=== PATIENT | male | born 1970 | race Asian ===

== ENCOUNTER 2024-09-10 06:11 | Day surgery (SDC) | payer OTHER ==
[2024-09-09 13:11] VITALS: BMI 31.1
[2024-09-10 11:59] VITALS: TEMP 98.2
[2024-09-10 12:11] VITALS: RESP 18
[2024-09-10 12:29] VITALS: PULSE 80
[2024-09-10 12:30] VITALS: BP 118/80
== END 2024-09-10 12:30 | disposition home or self-care (01) ==
LOC: JASU-ENDO 06:11
PROVIDERS: ATTEND Internal Medicine Gastroenterology
PROC: 0DBL8ZX Excision of Transverse Colon, Via Natural or Artificial Opening Endoscopic, Diagnostic (ICD-10-PCS; 2024-09-10)
PROC: 0DBN8ZX Excision of Sigmoid Colon, Via Natural or Artificial Opening Endoscopic, Diagnostic (ICD-10-PCS; principal; 2024-09-10 11:00)
DX: Z12.11 Encounter for screening for malignant neoplasm of colon (principal); D12.3 Benign neoplasm of transverse colon; D12.5 Benign neoplasm of sigmoid colon; K64.8 Other hemorrhoids; Z80.0 Family history of malignant neoplasm of digestive organs
CPT/HCPCS: 82962; 88305-TC